=== PATIENT | female | born 1955 | race Caucasian/White ===

== ENCOUNTER 2021-10-17 16:35 | Inpatient (IN) ==
[2021-10-18] MEDS ORDERED: Acetaminophen 325 MG TABLET PO PRN ×2 (00:23→11:53)
[2021-10-18] MEDS ORDERED: Melatonin 3 MG TABLET PO PRN ×2 (00:23→11:53)
[2021-10-18] MEDS ORDERED: *HR* HYDROcodone/Acet 5/325 mg TABLET PO PRN ×2 (00:23→11:53)
[2021-10-18] MEDS ORDERED: *HR* OxyCODONE Immed Rel 5 MG TABLET PO PRN (00:23)
[2021-10-18] MEDS ORDERED: *HR* Promethazine 25 MG/ML VIAL IM PRN (00:23)
[2021-10-18] MEDS ORDERED: Naloxone 0.4 MG/ML INJ IVP PRN ×2 (00:23→11:53)
[2021-10-18] MEDS ORDERED: Ondansetron 4 MG/2 ML VIAL IVP PRN ×2 (00:23→11:53)
[2021-10-18] MEDS ORDERED: Dextrose Gel 15 GM/37.5 ML TUBE PO PRN ×4 (00:26→11:53)
[2021-10-18] MEDS ORDERED: D5% in Water 1,000 ML IVC PRN ×2 (00:26→11:53)
[2021-10-18] MEDS ORDERED: *HR* Dextrose 50 % in Water (Syg) 50 ML SYRINGE IVP PRN ×2 (00:26→11:53)
[2021-10-18] MEDS: 0.9 % Sodium Chloride 1,000 ML IVC SCH (01:10)
[2021-10-18 01:15] LABS: Basophils % 0.5 %; Eosinophils # 0.3 K/mcL (0.0-0.6); Eosinophils % 3.8 %; Hemoglobin 12.7 g/dL (11.5-15.4); Immature Granulocytes % 0.6 % (0-4); Lymphocytes # 2.2 K/mcL (0.6-4.6); Lymphocytes % 26.8 %; Mean Corpuscular HGB Conc 31.8 g/dL (31.6-35.5); Mean Corpuscular Hemoglobin 29.7 pg (28.0-33.3); Mean Corpuscular Volume 93.5 fL (83.0-100.0); Mean Platelet Volume 9.4 fL (9.4-12.4); Monocytes # 0.5 K/mcL (0.0-1.3); Monocytes % 6.2 %; Neutrophils # 5.1 K/mcL (1.6-8.9); Platelet Count 296 K/mcL (140-400); Red Blood Count 4.28 M/mcL (3.82-4.97); Segmented Neutrophils % 62.1 %; White Blood Count 8.2 K/mcL (4.3-11.1)
[2021-10-18 01:22] LABS: INR 1.1; Prothrombin Time 12.6 Seconds (9.4-12.1)
[2021-10-18 01:33] LABS: BUN/Creatinine Ratio 28 (6-26); Blood Urea Nitrogen 21 mg/dL (8-23); Calcium 8.2 mg/dL (8.6-10.3); Carbon Dioxide 24 mEq/L (23-29); Chloride 110 mEq/L (98-107); Chol/HDL Ratio 6.2 (0-4.9); Cholesterol 123 mg/dL (< 200); Glucose 193 mg/dL (70-105); HDL Cholesterol 20 mg/dL (40-59); LDL Cholesterol,Calculated 79 mg/dL (< 100); Magnesium 1.6 mg/dL (1.6-2.6); Osmolality,Calculated 296 (280-300); Sodium 139 mEq/L (136-145); Triglycerides 119 mg/dL (< 150); eGFR For African Americans > 60 (> 60); eGFR For Non-African Americans > 60 (> 60)
[2021-10-18 02:55] LABS: C-Reactive Protein < 5 mg/L (Less than 10)
[2021-10-18] MEDS ORDERED: Insulin LISPRO 300 UNITS/3 ML VIAL SUBQ SCH ×2 (06:00→12:00)
[2021-10-18] MEDS ORDERED: MetroNIDAZOLE 500 MG/100 ML 500 MG/100 ML BAG IVPB SCH (06:00)
[2021-10-18] MEDS ORDERED: Cefepime HCl 2,000 MG in 0.9 % Sodium Chloride 10 ML IVP SCH (08:00)
[2021-10-18] MEDS ORDERED: Lidocaine 1% 20 ML MDV ONE (09:56)
[2021-10-18] MEDS ORDERED: Ondansetron 4 MG/2 ML VIAL ONE (10:21)
[2021-10-18] MEDS ORDERED: Lidocaine -MPF 2% 5 ML VIAL ONE (10:21)
[2021-10-18] MEDS ORDERED: *HR* FentaNYL (PF) 100 MCG/2 ML VIAL ONE (10:22)
[2021-10-18] MEDS ORDERED: 0.9 % Sodium Chloride 1,000 ML IVC SCH (11:53)
[2021-10-18] MEDS: MetroNIDAZOLE 500 MG/100 ML 500 MG/100 ML BAG IVPB SCH ×3 (12:14→23:08)
[2021-10-18] MEDS: Cefepime HCl 2,000 MG in 0.9 % Sodium Chloride 10 ML IVP SCH ×2 (16:37→23:08)
[2021-10-18] MEDS ORDERED: Vancomycin 2,000 MG/520 ML IV.SOLN IVPB SCH ×2 (18:00)
[2021-10-18] MEDS ORDERED: Insulin DETEMIR 100 UNIT/ML X5UNITS SUBQ SCH (21:00)
[2021-10-18] MEDS: Insulin DETEMIR 100 UNIT/ML X5UNITS SUBQ SCH (21:03)
[2021-10-18] MEDS: Insulin LISPRO 300 UNITS/3 ML VIAL SUBQ SCH (21:04)
[2021-10-18] MEDS: *HR* OxyCODONE Immed Rel 5 MG TABLET PO PRN (23:18)
[2021-10-19 05:20] LABS: Basophils # 0.1 K/mcL (0.0-0.2); Basophils % 0.6 %; Eosinophils # 0.3 K/mcL (0.0-0.6); Eosinophils % 3.6 %; Hematocrit 38.3 % (35.3-44.9); Immature Granulocytes % 0.6 % (0-4); Lymphocytes # 1.8 K/mcL (0.6-4.6); Lymphocytes % 22.5 %; Mean Corpuscular HGB Conc 31.3 g/dL (31.6-35.5); Mean Corpuscular Hemoglobin 29.4 pg (28.0-33.3); Mean Corpuscular Volume 93.9 fL (83.0-100.0); Mean Platelet Volume 9.3 fL (9.4-12.4); Monocytes # 0.5 K/mcL (0.0-1.3); Neutrophils # 5.4 K/mcL (1.6-8.9); Platelet Count 287 K/mcL (140-400); Red Blood Count 4.08 M/mcL (3.82-4.97); Red Cell Distribution Width 13.1 % (11.5-14.5); Segmented Neutrophils % 66.7 %
[2021-10-19 05:38] LABS: BUN/Creatinine Ratio 22 (6-26); Blood Urea Nitrogen 16 mg/dL (8-23); Calcium 8.1 mg/dL (8.6-10.3); Carbon Dioxide 24 mEq/L (23-29); Chloride 112 mEq/L (98-107); Glucose 174 mg/dL (70-105); Osmolality,Calculated 299 (280-300); Potassium 4.1 mEq/L (3.5-5.1); Sodium 142 mEq/L (136-145); eGFR For African Americans > 60 (> 60); eGFR For Non-African Americans > 60 (> 60)
[2021-10-19] MEDS: MetroNIDAZOLE 500 MG/100 ML 500 MG/100 ML BAG IVPB SCH ×4 (06:33→23:59)
[2021-10-19] MEDS: 0.9 % Sodium Chloride 1,000 ML IVC SCH (07:23)
[2021-10-19] MEDS: Insulin LISPRO 300 UNITS/3 ML VIAL SUBQ SCH ×4 (08:07→20:14)
[2021-10-19] MEDS: Cefepime HCl 2,000 MG in 0.9 % Sodium Chloride 10 ML IVP SCH ×3 (08:07→23:59)
[2021-10-19] MEDS: *HR* Promethazine 25 MG/ML VIAL IM PRN (08:32)
[2021-10-19] MEDS ORDERED: Vancomycin 1,500 MG/265 ML IV.SOLN IVPB SCH (09:00)
[2021-10-19] MEDS: *HR* OxyCODONE Immed Rel 5 MG TABLET PO PRN (16:27)
[2021-10-19] MEDS: Vancomycin 2,000 MG/520 ML IV.SOLN IVPB SCH (18:51)
[2021-10-19] MEDS: Insulin DETEMIR 100 UNIT/ML X5UNITS SUBQ SCH (20:13)
[2021-10-19] MEDS ORDERED: Vancomycin 2,000 MG/520 ML IV.SOLN IVPB SCH (21:00)
[2021-10-20 04:05] LABS: Bacteria,Urine Few per hpf (None-Few); Bilirubin,Urine Negative (Negative); Blood,Urine Trace (Negative); Clarity,Urine Clear (Clear); Color,Urine Light-Yellow (Yellow); Glucose,Urine (UA) 50 mg/dL (Normal); Ketones,Urine Trace mg/dL (Negative); Leukocyte Esterase,Urine Negative (Negative); Mucus,Urine Few per lpf (None-Few); Nitrite,Urine Negative (Negative); Protein,Urine Trace mg/dL (Neg-Trace); Specific Gravity,Urine 1.022 (1.010-1.025); Urobilinogen,Urine Normal (Normal); WBC,Urine 0-3 per hpf (0-3)
[2021-10-20] MEDS: MetroNIDAZOLE 500 MG/100 ML 500 MG/100 ML BAG IVPB SCH ×2 (05:35→12:20)
[2021-10-20] MEDS: Insulin LISPRO 300 UNITS/3 ML VIAL SUBQ SCH ×4 (08:20→20:21)
[2021-10-20] MEDS: Cefepime HCl 2,000 MG in 0.9 % Sodium Chloride 10 ML IVP SCH ×3 (08:24→23:21)
[2021-10-20 09:04] LABS: Basophils % 0.5 %; Eosinophils # 0.3 K/mcL (0.0-0.6); Eosinophils % 3.8 %; Hematocrit 41.9 % (35.3-44.9); Hemoglobin 13.4 g/dL (11.5-15.4); Immature Granulocytes % 0.6 % (0-4); Lymphocytes # 1.7 K/mcL (0.6-4.6); Lymphocytes % 20.8 %; Mean Corpuscular Hemoglobin 29.8 pg (28.0-33.3); Mean Corpuscular Volume 93.1 fL (83.0-100.0); Mean Platelet Volume 9.6 fL (9.4-12.4); Monocytes # 0.4 K/mcL (0.0-1.3); Monocytes % 5.3 %; Neutrophils # 5.7 K/mcL (1.6-8.9); Platelet Count 268 K/mcL (140-400); Red Cell Distribution Width 13.2 % (11.5-14.5); White Blood Count 8.2 K/mcL (4.3-11.1)
[2021-10-20 09:23] LABS: BUN/Creatinine Ratio 18 (6-26); Blood Urea Nitrogen 15 mg/dL (8-23); Calcium 8.4 mg/dL (8.6-10.3); Carbon Dioxide 26 mEq/L (23-29); Chloride 109 mEq/L (98-107); Glucose 190 mg/dL (70-105); Osmolality,Calculated 296 (280-300); Potassium 4.2 mEq/L (3.5-5.1); Sodium 140 mEq/L (136-145); eGFR For African Americans > 60 (> 60); eGFR For Non-African Americans > 60 (> 60)
[2021-10-20] MEDS: metroNIDAZOLE 500 MG TABLET PO SCH ×2 (17:55→23:21)
[2021-10-20] MEDS: Vancomycin 2,000 MG/520 ML IV.SOLN IVPB SCH (19:34)
[2021-10-20] MEDS: Insulin DETEMIR 100 UNIT/ML X5UNITS SUBQ SCH (20:21)
[2021-10-20] MEDS: *HR* OxyCODONE Immed Rel 5 MG TABLET PO PRN (22:43)
[2021-10-21 02:07] LABS: Basophils # 0.1 K/mcL (0.0-0.2); Basophils % 0.5 %; Eosinophils # 0.3 K/mcL (0.0-0.6); Eosinophils % 3.4 %; Hematocrit 39.9 % (35.3-44.9); Hemoglobin 12.9 g/dL (11.5-15.4); Immature Granulocytes % 0.5 % (0-4); Lymphocytes # 2.2 K/mcL (0.6-4.6); Lymphocytes % 23.7 %; Mean Corpuscular HGB Conc 32.3 g/dL (31.6-35.5); Mean Corpuscular Hemoglobin 29.7 pg (28.0-33.3); Mean Corpuscular Volume 91.9 fL (83.0-100.0); Mean Platelet Volume 9.5 fL (9.4-12.4); Monocytes # 0.6 K/mcL (0.0-1.3); Monocytes % 6.1 %; Neutrophils # 6.2 K/mcL (1.6-8.9); Platelet Count 279 K/mcL (140-400); Red Blood Count 4.34 M/mcL (3.82-4.97); Red Cell Distribution Width 13.1 % (11.5-14.5); Segmented Neutrophils % 65.8 %; White Blood Count 9.5 K/mcL (4.3-11.1)
[2021-10-21 02:24] LABS: BUN/Creatinine Ratio 20 (6-26); Blood Urea Nitrogen 16 mg/dL (8-23); Calcium 8.3 mg/dL (8.6-10.3); Carbon Dioxide 27 mEq/L (23-29); Chloride 109 mEq/L (98-107); Glucose 166 mg/dL (70-105); Osmolality,Calculated 295 (280-300); Potassium 3.9 mEq/L (3.5-5.1); Sodium 140 mEq/L (136-145); eGFR For African Americans > 60 (> 60); eGFR For Non-African Americans > 60 (> 60)
[2021-10-21] MEDS: metroNIDAZOLE 500 MG TABLET PO SCH ×4 (05:44→22:59)
[2021-10-21] MEDS: Insulin LISPRO 300 UNITS/3 ML VIAL SUBQ SCH ×4 (08:03→19:30)
[2021-10-21] MEDS: Cefepime HCl 2,000 MG in 0.9 % Sodium Chloride 10 ML IVP SCH ×3 (08:05→22:59)
[2021-10-21] MEDS: Vancomycin 2,000 MG/520 ML IV.SOLN IVPB SCH (19:00)
[2021-10-21] MEDS: *HR* OxyCODONE Immed Rel 5 MG TABLET PO PRN (19:27)
[2021-10-21] MEDS: Insulin DETEMIR 100 UNIT/ML X5UNITS SUBQ SCH (20:02)
[2021-10-22 06:06] LABS: Basophils # 0.1 K/mcL (0.0-0.2); Basophils % 0.6 %; Eosinophils # 0.2 K/mcL (0.0-0.6); Hematocrit 41.8 % (35.3-44.9); Hemoglobin 13.4 g/dL (11.5-15.4); Immature Granulocytes % 0.6 % (0-4); Lymphocytes # 1.4 K/mcL (0.6-4.6); Lymphocytes % 12.6 %; Mean Corpuscular HGB Conc 32.1 g/dL (31.6-35.5); Mean Corpuscular Hemoglobin 29.5 pg (28.0-33.3); Mean Corpuscular Volume 91.9 fL (83.0-100.0); Mean Platelet Volume 9.3 fL (9.4-12.4); Monocytes # 0.6 K/mcL (0.0-1.3); Monocytes % 5.2 %; Platelet Count 248 K/mcL (140-400); Red Blood Count 4.55 M/mcL (3.82-4.97); Red Cell Distribution Width 13.4 % (11.5-14.5); White Blood Count 11.4 K/mcL (4.3-11.1)
[2021-10-22] MEDS: metroNIDAZOLE 500 MG TABLET PO SCH ×4 (06:12→23:48)
[2021-10-22 06:22] LABS: BUN/Creatinine Ratio 19 (6-26); Blood Urea Nitrogen 15 mg/dL (8-23); Calcium 8.3 mg/dL (8.6-10.3); Carbon Dioxide 27 mEq/L (23-29); Chloride 106 mEq/L (98-107); Glucose 275 mg/dL (70-105); Osmolality,Calculated 299 (280-300); Potassium 3.9 mEq/L (3.5-5.1); Sodium 139 mEq/L (136-145); eGFR For African Americans > 60 (> 60); eGFR For Non-African Americans > 60 (> 60)
[2021-10-22] MEDS: Insulin LISPRO 300 UNITS/3 ML VIAL SUBQ SCH ×4 (07:57→20:44)
[2021-10-22] MEDS: Cefepime HCl 2,000 MG in 0.9 % Sodium Chloride 10 ML IVP SCH ×3 (07:58→23:48)
[2021-10-22] MEDS: lisinopriL 10 MG TABLET PO SCH (08:00)
[2021-10-22] MEDS: Vancomycin 2,000 MG/520 ML IV.SOLN IVPB SCH ×2 (19:40→20:45)
[2021-10-22] MEDS: Insulin DETEMIR 100 UNIT/ML X5UNITS SUBQ SCH (20:45)
[2021-10-23 05:13] LABS: Basophils # 0.1 K/mcL (0.0-0.2); Basophils % 0.5 %; Eosinophils # 0.4 K/mcL (0.0-0.6); Eosinophils % 3.3 %; Hematocrit 40.9 % (35.3-44.9); Hemoglobin 13.2 g/dL (11.5-15.4); Immature Granulocytes % 0.5 % (0-4); Lymphocytes # 2.6 K/mcL (0.6-4.6); Lymphocytes % 24.3 %; Mean Corpuscular HGB Conc 32.3 g/dL (31.6-35.5); Mean Corpuscular Hemoglobin 29.9 pg (28.0-33.3); Mean Corpuscular Volume 92.5 fL (83.0-100.0); Mean Platelet Volume 9.8 fL (9.4-12.4); Monocytes # 0.7 K/mcL (0.0-1.3); Monocytes % 6.5 %; Platelet Count 249 K/mcL (140-400); Red Blood Count 4.42 M/mcL (3.82-4.97); Red Cell Distribution Width 13.6 % (11.5-14.5); Segmented Neutrophils % 64.9 %; White Blood Count 10.7 K/mcL (4.3-11.1)
[2021-10-23 05:29] LABS: BUN/Creatinine Ratio 19 (6-26); Blood Urea Nitrogen 17 mg/dL (8-23); Calcium 8.3 mg/dL (8.6-10.3); Carbon Dioxide 24 mEq/L (23-29); Chloride 109 mEq/L (98-107); Glucose 250 mg/dL (70-105); Osmolality,Calculated 298 (280-300); Potassium 3.7 mEq/L (3.5-5.1); Sodium 139 mEq/L (136-145); eGFR For African Americans > 60 (> 60); eGFR For Non-African Americans > 60 (> 60)
[2021-10-23] MEDS: metroNIDAZOLE 500 MG TABLET PO SCH ×4 (05:34→23:42)
[2021-10-23] MEDS: lisinopriL 10 MG TABLET PO SCH (08:05)
[2021-10-23] MEDS: Insulin LISPRO 300 UNITS/3 ML VIAL SUBQ SCH ×4 (08:05→20:53)
[2021-10-23] MEDS: Cefepime HCl 2,000 MG in 0.9 % Sodium Chloride 10 ML IVP SCH ×2 (12:07→21:13)
[2021-10-23] MEDS: Vancomycin 2,000 MG/520 ML IV.SOLN IVPB SCH (18:30)
[2021-10-23] MEDS: Insulin DETEMIR 100 UNIT/ML X5UNITS SUBQ SCH (20:53)
[2021-10-23] MEDS: *HR* Promethazine 25 MG/ML VIAL IM PRN (22:32)
[2021-10-24] MEDS: Cefepime HCl 2,000 MG in 0.9 % Sodium Chloride 10 ML IVP SCH (04:10)
[2021-10-24] MEDS: metroNIDAZOLE 500 MG TABLET PO SCH ×3 (05:08→20:08)
[2021-10-24] MEDS: lisinopriL 10 MG TABLET PO SCH (08:26)
[2021-10-24] MEDS: Insulin LISPRO 300 UNITS/3 ML VIAL SUBQ SCH ×4 (08:27→17:04)
[2021-10-24] MEDS: Vancomycin 2,000 MG/520 ML IV.SOLN IVPB SCH (20:07)
[2021-10-24] MEDS: Gabapentin 300 MG CAPSULE PO SCH (20:08)
[2021-10-24 20:41] LABS: eGFR For African Americans > 60 (> 60); eGFR For Non-African Americans > 60 (> 60)
[2021-10-24] MEDS: Insulin DETEMIR 100 UNIT/ML X5UNITS SUBQ SCH (21:10)
[2021-10-25] MEDS ORDERED: *HR* Enoxaparin 40 MG/0.4 ML SYRINGE SQ SCH (07:00)
[2021-10-25 07:02] LABS: Influenza A PCR Negative (Negative); Influenza B PCR Negative (Negative); Resp. Syncytial Virus PCR Negative (Negative)
[2021-10-25 07:25] LABS: SARS-CoV-2 by PCR (In House) Negative (Negative)
[2021-10-25 07:41] VITALS: O2SAT 96
[2021-10-25] MEDS: Insulin LISPRO 300 UNITS/3 ML VIAL SUBQ SCH ×2 (08:02→12:34)
[2021-10-25] MEDS: Gabapentin 300 MG CAPSULE PO SCH (08:39)
[2021-10-25] MEDS: lisinopriL 10 MG TABLET PO SCH (08:39)
[2021-10-25] MEDS: metroNIDAZOLE 500 MG TABLET PO SCH (08:39)
[2021-10-25] MEDS: Insulin DETEMIR 100 UNIT/ML X5UNITS SUBQ SCH (08:39)
[2021-10-25] MEDS ORDERED: FLUoxetine HCl 10 MG CAPSULE PO SCH (09:00)
[2021-10-25] MEDS ORDERED: Linezolid 600 MG TABLET PO SCH (10:45)
[2021-10-25 10:59] VITALS: BP 144/78; PULSE 64; TEMP 98
== END 2021-10-25 14:22 | DRG 622 ==
LOC: 4WAOSI → SUATTDRO 23:59
PROVIDERS: ADMIT Internal Medicine; ATTEND Pharmacist